=== PATIENT | female | born 1980 | race Caucasian/White ===

== ENCOUNTER 2017-02-11 05:17 | Emergency (ER) | payer MEDICAID ==
[2017-02-11] MEDS ORDERED: Acetaminophen 325 MG Tab PO ONE (05:51)
--- NOTE | 2017-02-11 06:00 | EDM.PDOC ---
ED HPI GENERAL MEDICAL PROBLEM - General Chief Complaint: Back Pain or Injury Stated Complaint: BACK PAIN POSSIBLE KIDNEY INFECTION OR UTI Time Seen by Provider: 02/11/17 05:44 Source of Information: Reports: Patient, RN Notes Reviewed - History of Present Illness INITIAL COMMENTS - FREE TEXT/NARRATIVE: 36-year-old female comes in with left low back pain. This did start about a week ago, has become much worse over the past 1-2 days. She now does have radiation down the left lower leg. Not aware of any bending or lifting injury. She has had voiding frequency but no burning or dysuria. No fever chills nausea or vomiting. 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 Below) Other OB/BYN History: PCOS Endocrine/Metabolic History: Reports: Diabetes, Type II Social & Family History - Tobacco Use Smoking Status *Q: Current Every Day Smoker Years of Tobacco use: 25 Packs/Tins Daily: 0.5 - Caffeine Use Caffeine Use: Reports: Coffee - Recreational Drug Use Recreational Drug Use: No ED ROS GENERAL - Review of Systems Review Of Systems: See Below Constitutional: Denies: Fever, Chills HEENT: Denies: Throat Pain Respiratory: Denies: Shortness of Breath Cardiovascular: Denies: Chest Pain GI/Abdominal: Denies: Abdominal Pain, Nausea, Vomiting : Reports: Frequency Musculoskeletal: Reports: Back Pain, Leg Pain (Left-sided) Skin: Reports: No Symptoms ED EXAM,LOWER BACK PAIN/INJURY - Physical Exam Exam: See Below General Appearance: Alert, Moderate Distress Throat/Mouth: Normal Inspection Head: Atraumatic Neck: Supple Respiratory/Chest: No Respiratory Distress Back Exam: CVA Tenderness (L), Paraspinal Tenderness (Left low back) Neurological: Alert, No Motor/Sensory Deficits, Oriented x 3 Course - Vital Signs Last Recorded V/S: Last Vital Signs Temp 96.4 F 02/11/17 05:26 Pulse 98 02/11/17 05:26 Resp 18 02/11/17 05:26 BP 159/106 H 02/11/17 05:26 Pulse Ox 100 02/11/17 05:26 - Orders/Labs/Meds Orders: Active Orders 24 hr Category Date Time Status Nitrofurantoin Kidder/Macrocryst [Macrobid] Med 02/11/17 06:59 Once 100 mg PO ONETIME ONE Labs: Laboratory Tests 02/11/17 Range/Units 05:55 Urine Color Yellow (Yellow) Urine Appearance Clear (Clear) Urine pH 6.0 (5.0-8.0) Ur Specific [place] > or = 1.030 (1.005-1.030) Urine Protein Negative (Negative) Urine Glucose (UA) Negative (Negative) Urine Ketones Negative (Negative) Urine Occult Blood 2+ H (Negative) Urine Nitrite Negative (Negative) Urine Bilirubin Negative (Negative) Urine Urobilinogen 0.2 (0.2-1.0) Ur Leukocyte Esterase 1+ H (Negative) Urine RBC 5-10 H (0-5) /hpf Urine WBC 5-10 H (0-5) /hpf Ur Epithelial Cells 0-5 (0-5) /hpf Urine Bacteria Few (FEW) /hpf Urine Mucus Few (FEW) /hpf Meds: Medications Discontinued Medications Generic Name Dose Route Start Last Admin Trade Name Freq PRN Reason Stop Dose Admin Acetaminophen 975 mg 02/11/17 05:51 02/11/17 05:54 Tylenol PO 02/11/17 05:52 975 mg NOW ONE Administration Hydrocodone Bitart/Acetaminophen 1 tab 02/11/17 06:58 [place] 325-5 Mg PO 02/11/17 06:59 ONETIME ONE Departure - Departure Time of Disposition: 07:00 Disposition: Home, Self-Care 01 Condition: Fair Clinical Impression: Sciatica Qualifiers: Laterality: left Qualified Code(s): M54.32 - Sciatica, left side UTI (urinary tract infection) Qualifiers: Urinary tract infection type: acute cystitis Hematuria presence: without hematuria Qualified Code(s): N30.00 - Acute cystitis without hematuria - Discharge Information Prescriptions: Cyclobenzaprine [Flexeril] 10 mg PO TID PRN #10 tablet PRN Reason: Spasms Nitrofurantoin Monohyd/M-Cryst [Macrobid 100 mg Capsule] 100 mg PO BID #10 capsule Referrals: PCP,None [Primary Care Provider] - Forms: ED Department Discharge Additional Instructions: Drink plenty of water to maintain hydration, Macrobid 100 mg twice daily for 5 days, alternate ice and heat to low back as needed for discomfort, continue Aleve 2 tabs twice daily, Flexeril as needed for muscle spasm, hydrocodone 325 one half tab with 500 mg Tylenol 3-4 times daily as needed for more severe pain. Follow-up clinic if not much better within 3-5 days, return to ED as needed - My Orders Last 24 Hours: My Active Orders 02/11/17 06:59 Nitrofurantoin Kidder/Macrocryst [Macrobid] 100 mg PO ONETIME ONE - Assessment/Plan Last 24 Hours: My Active Orders 02/11/17 06:59 Nitrofurantoin Kidder/Macrocryst [Macrobid] 100 mg PO ONETIME ONE
[2017-02-11] MEDS ORDERED: Acetaminophen/HYDROcodone 325-5 MG Tab PO ONE (06:58)
[2017-02-11] MEDS ORDERED: Nitrofurantoin Monohydrate/Macrocrystalline 100 MG Cap PO ONE (06:59)
== END 2017-02-11 07:15 | disposition home or self-care (01) ==
LOC: JD.ED 05:17
DX: M54.42 Lumbago with sciatica, left side (principal); N30.00 Acute cystitis without hematuria; E11.9 Type 2 diabetes mellitus without complications; F17.210 Nicotine dependence, cigarettes, uncomplicated; Z88.1 Allergy status to other antibiotic agents; Z79.899 Other long term (current) drug therapy
CPT/HCPCS: 81001; 99283; A9270

== ENCOUNTER 2018-06-02 02:06 | Emergency (ER) | payer SELFPAY ==
[2018-06-02] MEDS ORDERED: Albuterol/Ipratropium 3.0-0.5 MG/3 ML Neb Soln NEB ONE (02:24)
[2018-06-02] MEDS ORDERED: Budesonide 0.5 MG/2 ML Neb Susp NEB ONE (02:24)
--- NOTE | 2018-06-02 02:24 | EDM.PDOC ---
ED HPI GENERAL MEDICAL PROBLEM - General Chief Complaint: ENT Problem Stated Complaint: cold /feeling heart beat in her head Time Seen by Provider: 06/02/18 02:17 Source of Information: Reports: Patient History Limitations: Reports: No Limitations - History of Present Illness INITIAL COMMENTS - FREE TEXT/NARRATIVE: 37-year-old female presents to the ED with upper respiratory tract infection. Marked nasal congestion plugged feelings inner ears and she can feel every heartbeat when she lies down in her head. She was concerned that her blood pressure was going to be very high that she might be at risk of stroke. As forceful voice clearing. See been sick for the better part of 2 and half weeks. Throat is been very sore the last 3 days. Postnasal drip. Cough is for the most part is nonproductive. Feels that she is wheezy at times. Onset: Gradual Onset Date: 05/17/18 Duration: Week(s):, Getting Worse. No: Other ( Paroxysmal congested cough) Location: Reports: Chest (The last 3 days particularly with very sore throat and more nasal congestion.). Denies: Abdomen, Back, Pelvis, Lower Extremity, Left Quality: Reports: Other (Ingested nose. Throbbing pounding in her head i.e. every heartbeat) Severity: Moderate Improves with: Reports: None Worsens with: Reports: None Context: Denies: Activity, Exercise, Lifting, Sick Contact, Trauma, Other Associated Symptoms: Reports: Cough, Fever/Chills, Loss of Appetite, Malaise, Shortness of Breath. 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 - Related Data Allergies Allergy/AdvReac Type Severity Reaction Status Date / Time neomycin Allergy Blisters Verified 06/02/18 02:20 Home Meds: Home Meds Codeine/Promethazine [Phenergan with Codeine] 15 ml PO Q6HR #300 ml 06/02/18 [Rx ] Doxycycline [Vibramycin] 100 mg PO BID #20 cap 06/02/18 [Rx] Loratadine/Pseudoephedrine [Claritin-D 12 Hour] 1 tab PO Q12HR #6 tab.er [Rx] PARoxetine [Paxil] 20 mg PO DAILY 06/02/18 [History] Past Medical History Cardiovascular History: Reports: Hypertension 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 Denies : Fever HEENT: Reports: Hearing Loss, Rhinitis, Sinus Problem, Throat Pain. Denies: Vertigo Respiratory: Reports: Shortness of Breath, Wheezing, Cough. Denies: Pleuritic Chest Pain Cardiovascular: Reports: Dyspnea on Exertion. Denies: Chest Pain, Blood Pressure Problem, Claudication, Edema, Lightheadedness, Orthopnea Endocrine: Reports: No Symptoms GI/Abdominal: Reports: No Symptoms Musculoskeletal: Reports: Back Pain, Joint Pain Skin: Reports: No Symptoms (Knees hips at times) Neurological: Reports: No Symptoms Psychiatric: Reports: Depression Hematologic/Lymphatic: Reports: No Symptoms Immunologic: Reports: No Symptoms ED EXAM, ENT - Physical Exam Exam: See Below Exam Limited By: No Limitations General Appearance: Alert, WD/WN, Moderate Distress, Other (Sounds very nasally congested. BP is elevated at 140 7//08. Temperature is normal pulse ox is 9 98 % on room air. I appreciate a good deal of forceful voice clearing.) Eye Exam: Bilateral Eye: Normal Inspection Ears: TM Bulging, TM Dullness, TM Fluid (She does have a left serous otitis media.), Other ( Left side and TM is normal ) Nose: Other (Patient does have a mild nasal polyp and marked swelling of the superior ends medial turbinates on the left side as compared to the right. Likely contributing eustachian tube dysfunction and her DESEAN.) Mouth/Throat: Other (Diffuse oropharyngeal erythema and marked swelling of her uvula I believe from forceful voice clearing and coughing.) Head: Atraumatic, Normocephalic Neck: Normal Inspection, Supple, Non-Tender, Full Range of Motion. No: Lymphadenopathy (L), Lymphadenopathy (R) Respiratory/Chest: No Respiratory Distress, Lungs Clear, Normal Breath Sounds, Chest Non-Tender, Other Cardiovascular: Normal Peripheral Pulses (Medications minutes sounds from the upper respiratory tree the lower lungs are clear), Regular Rate, Rhythm, No Edema, No Gallop, No JVD, No Murmur GI/Abdominal: Normal Bowel Sounds, Soft, Non-Tender, No Organomegaly Course - Vital Signs Last Recorded V/S: Last Vital Signs Temp 36.9 C 06/02/18 02:17 Pulse 82 06/02/18 02:17 Resp 18 06/02/18 02:17 BP 147/108 H 06/02/18 02:17 Pulse Ox 94 L 06/02/18 02:33 - Orders/Labs/Meds Orders: Active Orders 24 hr Category Date Time Status RT Aerosol Therapy [RC] ASDIRECTED Care 06/02/18 02:24 Active Meds: Medications Discontinued Medications Generic Name Dose Route Start Last Admin Trade Name Freq PRN Reason Stop Dose Admin Albuterol/Ipratropium 3 ml 06/02/18 02:24 06/02/18 02:33 Duoneb 3.0-0.5 Mg/3 Ml NEB 06/02/18 02:25 3 ml ONETIME ONE Administration Budesonide 0.5 mg 06/02/18 02:24 06/02/18 02:33 Pulmicort NEB 06/02/18 02:25 0.5 mg ONETIME ONE Administration Doxycycline Hyclate 100 mg 06/02/18 02:40 Vibramycin PO 06/02/18 02:41 ONETIME ONE Oxymetazoline HCl 15 ml 06/02/18 02:27 Afrin Original 0.05% Nasal [place] FLACA 06/02/18 02:28 ONETIME ONE Promethazine HCl/Codeine 20 ml 06/02/18 02:57 Phenergan With Codeine PO 06/02/18 02:58 ONETIME ONE - Radiology Interpretation Free Text/Narrative:: 37-year-old female presents to the ED with upper respiratory tracts symptoms of infection with a left serous otitis media and clinically sinusitis with postnasal drip causing her to have forceful voice clearing and a sore throat. I' m going to have RT give her a DuoNeb with a Pulmicort neb treatments as he can alleviate some of her upper airway irritation. Lower lung curran are clear. We' ll try Afrin nasal spray one squirt each side to minutes apart to relieve some of her acute nasal congestion and perhaps her eustachian tube dysfunction. 2 be discharged on doxycycline 100 mg twice daily for the next 10 days to clear up sinus infection and postnasal drip. Claritin-D 12 hour release once daily every morning for the next 6 days. Afrin nasal spray 2 squirts to each side every night at bedtime - Re-Assessments/Exams Free Text/Narrative Re-Assessment/Exam: 06/02/18 03:01 patient doesn't feel she got much relief from the nebulizer treatment. He'll therefore have recurrence take Phenergan with codeine cough syrup 20 mils by mouth now to help relieve severe cough and it'll also help bring down her blood pressure which remains borderline elevated at 151/95. She will use Afrin nasal spray 2 squirts to each side is once daily at bedtime to help alleviate nasal congestion and this will not aggravate her blood pressure. Doxycycline 100 mg twice daily for the next 10 days for sinus infection. Nasal drip is continued to cause her paroxysmal cough and sore throat. Follow-up with primary care physician as needed. Departure - Departure Time of Disposition: 03:10 Disposition: Home, Self-Care 01 Condition: Fair Clinical Impression: Postnasal drip Sinusitis Qualifiers: Sinusitis location: unspecified location Chronicity: acute Recurrence: non- recurrent Qualified Code(s): J01.90 - Acute sinusitis, unspecified Pharyngitis Qualifiers: Pharyngitis/tonsillitis etiology: unspecified etiology Qualified Code(s): J02.9 - Acute pharyngitis, unspecified Left serous otitis media Qualifiers: Chronicity: acute Recurrence: non-recurrent Qualified Code(s): H65.02 - Acute serous otitis media, left ear - Discharge Information *PRESCRIPTION DRUG MONITORING PROGRAM REVIEWED*: Not Applicable *COPY OF PRESCRIPTION DRUG MONITORING REPORT IN PATIENT ETHEL: Not Applicable Prescriptions: Codeine/Promethazine [Phenergan with Codeine] 15 ml PO Q6HR #300 ml Loratadine/Pseudoephedrine [Claritin-D 12 Hour] 1 tab PO Q12HR #6 tab.er Doxycycline [Vibramycin] 100 mg PO BID #20 cap Instructions: Sinusitis, Adult, [id number], Postnasal Drip, Pharyngitis, Easy -to-Read Referrals: PCP,None [Primary Care Provider] - Forms: ED Department Discharge Additional Instructions: Evaluation in the emergency department today in regards to upper respiratory tract infection which has created sinus infection and fluid behind her left ear drum. This makes it possible to hear every heartbeat when you lie down or pounding in her head because of blood vessels traveling right behind her left eardrum. Blood pressure was found to be mildly elevated and he should keep an eye on it but it is only minimally elevated at this time it does not require medication on an emergent basis. I would suggest treatment with Afrin nasal spray 2 squirts to each side of your nose at bedtime for the next 3-5 days to help open up ear nose and allow the fluid to drain from the left ear cavity. Antibiotic is to be Doxycycline 100 mg twice daily for the next 10 days to clear up sinus infection and sore throat. Suggest Claritin-D 12 hour release once daily every morning for the next 6 days again to help provide decongestion of the sinuses and middle ear cavities. Use cough syrup Phenergan With Codeine 15 mils every 6-8 hours as necessary for relief of severe cough. - My Orders Last 24 Hours: My Active Orders 06/02/18 02:24 RT Aerosol Therapy [RC] ASDIRECTED - Assessment/Plan Last 24 Hours: My Active Orders 06/02/18 02:24 RT Aerosol Therapy [RC] ASDIRECTED
[2018-06-02] MEDS ORDERED: Oxymetazoline 0.05% Nasal Spray 15 ML Bottle NAS ONE (02:27)
[2018-06-02] MEDS ORDERED: Doxycycline 100 MG Cap PO ONE (02:40)
[2018-06-02] MEDS ORDERED: Codeine/Promethazine 10-6.25 MG/5 ML Syrup 5 ML UD Cup PO ONE (02:57)
== END 2018-06-02 03:05 | disposition home or self-care (01) ==
LOC: JD.ED 02:06
DX: J01.90 Acute sinusitis, unspecified (principal); J02.9 Acute pharyngitis, unspecified; H65.02 Acute serous otitis media, left ear; E11.9 Type 2 diabetes mellitus without complications; I10 Essential (primary) hypertension; F32.9 Major depressive disorder, single episode, unspecified; Z79.899 Other long term (current) drug therapy; Z88.8 Allergy status to other drugs, medicaments and biological substances
CPT/HCPCS: 94640; 99283; 99284-25; J7620-GY

== ENCOUNTER 2020-03-25 07:41 | Emergency (ER) | payer SELFPAY ==
[2020-03-25] MEDS ORDERED: Phenazopyridine 95 MG Tab PO ONE (08:12)
[2020-03-25] MEDS ORDERED: Ondansetron 4 MG Tab.DIS PO ONE (08:12)
--- NOTE | 2020-03-25 08:18 | EDM.PDOC ---
ED HPI GENERAL MEDICAL PROBLEM - General Chief Complaint: Genitourinary Problem Stated Complaint: PAINFUL URINATION AND BACK PAIN Time Seen by Provider: 03/25/20 07:57 Source of Information: Reports: Patient History Limitations: Reports: No Limitations - History of Present Illness INITIAL COMMENTS - FREE TEXT/NARRATIVE: The patient presents with urinary frequency and low back pain. This started yesterday and she has been urinating often all night. She has some nausea. She denies burning with urination. This does feel like her other UTIs. She has no fever, chills, cough, chest pain or shortness of breath. Onset: Gradual Duration: Day(s): () Location: Reports: Back Severity: Moderate Improves with: Reports: None Worsens with: Reports: None Associated Symptoms: Reports: Nausea/Vomiting. 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 Psychiatric History: Reports: Depression Endocrine/Metabolic History: Reports: Diabetes, Type II Social & Family History - Family History Family Medical History: No Pertinent Family History - Tobacco Use Tobacco Use Status *Q: Current Every Day Tobacco User Years of Tobacco use: 20 Packs/Tins Daily: 0.5 Second Hand Smoke Exposure: Yes - Caffeine Use Caffeine Use: Reports: Coffee - Recreational Drug Use Recreational Drug Use: No - Living Situation & Occupation Living situation: Reports: Occupation: Unemployed ED ROS GENERAL - Review of Systems Review Of Systems: See Below Constitutional: Reports: No Symptoms HEENT: Reports: No Symptoms Respiratory: Reports: No Symptoms Cardiovascular: Reports: No Symptoms Endocrine: Reports: No Symptoms GI/Abdominal: Reports: Abdominal Pain, Nausea. Denies: Vomiting : Reports: Frequency. Denies: Dysuria Musculoskeletal: Reports: Back Pain ED EXAM, GI/ABD - Physical Exam Exam: See Below Exam Limited By: No Limitations General Appearance: Alert, No Apparent Distress Ears: Normal External Exam Nose: Normal Inspection Head: Atraumatic, Normocephalic Neck: Normal Inspection Respiratory/Chest: No Respiratory Distress, Lungs Clear, Normal Breath Sounds Cardiovascular: Regular Rate, Rhythm, No Edema, No Murmur GI/Abdominal Exam: Soft, Non-Tender, No Organomegaly, No Mass Back Exam: Other (Mild tenderness to the left lower back) Course - Vital Signs Last Recorded V/S: Last Vital Signs Temp 96.9 F 03/25/20 08:01 Pulse 108 H 03/25/20 08:01 Resp 18 03/25/20 08:01 BP 156/119 H 03/25/20 08:01 Pulse Ox 99 03/25/20 08:01 - Orders/Labs/Meds Labs: Laboratory Tests 03/25/20 Range/Units 07:52 Urine Color [place] H (Yellow) Urine Appearance [place] cloudy H (Clear) Urine pH 5.0 (5.0-8.0) Ur Specific [place] <=1.005 (1.005-1.030) Urine Protein 2+ H (Negative) Urine Glucose (UA) 1+ H (Negative) Urine Ketones 1+ H (Negative) Urine Occult Blood 2+ H (Negative) Urine Nitrite Positive H (Negative) Urine Bilirubin 2+ H (Negative) Urine Urobilinogen >=8.0 H (0.2-1.0) Ur Leukocyte Esterase 3+ H (Negative) Urine RBC 20-30 H (0-5) /hpf Urine WBC 30-40 H (0-5) /hpf Ur Squamous Epith Cells 0-5 (0-5) /hpf Urine Bacteria Many H (FEW) /hpf Urine Mucus Few (FEW) /hpf Meds: Medications Discontinued Medications Generic Name Dose Route Start Last Admin Trade Name [place] PRN Reason Stop Dose Admin Ondansetron HCl 4 mg 03/25/20 08:12 03/25/20 08:19 Zofran Odt PO 03/25/20 08:13 4 mg ONETIME ONE Administration Phenazopyridine HCl 95 mg 03/25/20 08:12 03/25/20 08:19 Urinary Pain Relief PO 03/25/20 08:13 95 mg ONETIME ONE Administration - Re-Assessments/Exams Free Text/Narrative Re-Assessment/Exam: 03/25/20 08:18 I ordered a UA, pyridium, and zofran 4mg ODT. 03/25/20 08:40 Her UA shows a UTI. I will give her a dose of keflex and a prescription for more. Departure - Departure Time of Disposition: 08:45 Disposition: Home, Self-Care 01 Condition: Good Clinical Impression: UTI, Urinary tract infectious disease - Discharge Information *PRESCRIPTION DRUG MONITORING PROGRAM REVIEWED*: Not Applicable *COPY OF PRESCRIPTION DRUG MONITORING REPORT IN PATIENT ETHEL: Not Applicable Referrals: PCP,None [Primary Care Provider] - Forms: ED Department Discharge Additional Instructions: Drink plenty of fluids. Take the keflex 2 times per day for 5 days. Take tylenol or motrin for any pain. Please return if you are worse. Sepsis Event Note (ED) - Evaluation Sepsis Screening Result: No Definite Risk - Focused Exam Vital Signs: Vital Signs Temp Pulse Resp BP Pulse Ox 03/25/20 08:01 96.9 F 108 H 18 156/119 H 99 03/25/20 07:53 96.9 F 108 H 18 156/119 H 99
[2020-03-25] MEDS ORDERED: Cephalexin 500 MG Cap PO ONE (08:40)
== END 2020-03-25 09:06 | disposition home or self-care (01) ==
LOC: JD.ED 07:41
DX: N39.0 Urinary tract infection, site not specified (principal); I10 Essential (primary) hypertension; Z88.1 Allergy status to other antibiotic agents; Z72.0 Tobacco use
CPT/HCPCS: 81001; 99283; A9270

== ENCOUNTER 2021-09-16 13:32 | Emergency (ER) | payer SELFPAY ==
[2021-09-16] MEDS ORDERED: diphenhydrAMINE 50 MG/ML SDV IVPUSH ONE (13:55)
[2021-09-16] MEDS ORDERED: Metoclopramide 10 MG/2 ML SDV IVPUSH ONE (13:55)
[2021-09-16] MEDS ORDERED: Ketorolac 30 MG/ML SDV IVPUSH ONE (13:55)
[2021-09-16] MEDS ORDERED: Sodium Chloride 0.9% 1,000 ML IV ONE (13:55)
[2021-09-16] MEDS ORDERED: Sodium Chloride 0.9% 10 ML Syringe FLUSH PRN (13:55)
[2021-09-16 15:10] LABS: ESTIMATED GFR 114 mL/min (>60)
== END 2021-09-16 15:10 | disposition home or self-care (01) ==
LOC: JD.ED 13:32
DX: R51.9 Headache, unspecified (principal); U09.9 Post COVID-19 condition, unspecified; I10 Essential (primary) hypertension; E11.9 Type 2 diabetes mellitus without complications; F17.210 Nicotine dependence, cigarettes, uncomplicated; E66.9 Obesity, unspecified; Z68.41 Body mass index [BMI] 40.0-44.9, adult; Z79.82 Long term (current) use of aspirin; Z79.84 Long term (current) use of oral hypoglycemic drugs
CPT/HCPCS: 36415; 80053; 83735; 85025; 86140; 96361; 96374; 96375; 99284; J1200; J1885; J2765; J7030

== ENCOUNTER 2022-09-02 19:41 | Emergency (ER) | payer SELFPAY ==
[2022-09-02] MEDS ORDERED: Sodium Chloride 0.9% 10 ML Syringe FLUSH PRN (20:03)
[2022-09-02] MEDS ORDERED: Ketorolac 30 MG/ML SDV IVPUSH ONE (20:07)
[2022-09-02 20:39] LABS: BASOPHILS ABSOLUTE AUTO 0.04 K/mm3 (0.01-0.08); BASOPHILS PERCENT AUTO 0.3 % (0.1-1.2); EOSINOPHILS ABSOLUTE AUTO 0.27 K/mm3 (0.04-0.36); EOSINOPHILS PERCENT AUTO 2.3 (0.7-5.8); HEMATOCRIT 41.9 % (34.1-44.9); HEMOGLOBIN 14.2 gm/dl (11.2-15.7); IMMATURE GRAN ABSOLUTE AUTO 0.04 K/mm3 (0.00-0.10); IMMATURE GRAN PERCENT AUTO 0.3 % (<=1.0); LYMPHOCYTES PERCENT AUTO 30.3 % (19.3-51.7); MEAN CORPUSCULAR HGB CONC 33.9 g/dl (32.2-35.5); MEAN CORPUSCULAR VOLUME 85.7 fl (79.4-94.8); MEAN PLATELET VOLUME 11.1 fl (9.4-12.3); MONOCYTES ABSOLUTE AUTO 0.69 K/mm3 (0.24-0.36); NEUTROPHILS ABSOLUTE AUTO 7.01 K/mm3 (1.56-6.13); NEUTROPHILS PERCENT AUTO 60.8 % (34.0-71.1); PLATELET COUNT,PLT 202 K/mm3 (182-369); RED BLOOD CELL COUNT 4.89 M/mm3 (3.98-5.22); WHITE BLOOD CELL COUNT,WBC 11.55 K/mm3 (3.98-10.04)
[2022-09-02 21:05] LABS: A/G RATIO 1.1 (1-2); ALANINE AMINOTRANSFERASE,ALT 36 U/L (14-59); ALBUMIN 3.9 g/dl (3.4-5.0); ALKALINE PHOSPHATASE 66 U/L (46-116); ANION GAP 11.8 (5-15); ASPARTATE AMNIOTRANSFERASE,AST 28 U/L (15-37); BILIRUBIN TOTAL 0.3 mg/dL (0.2-1.0); BLOOD UREA NITROGEN,BUN 8 mg/dL (7-18); C-REACTIVE PROTEIN <0.2 mg/dL (<1.0); CALCIUM 9.8 mg/dL (8.5-10.1); CARBON DIOXIDE,CO2 26 mEq/L (21-32); CHLORIDE,CL 103 mEq/L (98-107); CREATININE 0.8 mg/dL (0.55-1.02); EST CRCL DRUG DOSING (CG) 87.27 mL/min; ESTIMATED GFR 93 mL/min (>60); GLUCOSE RANDOM 147 mg/dL (70-99); POTASSIUM,K 3.8 mEq/L (3.5-5.1); PROTEIN TOTAL,TP 7.5 g/dl (6.4-8.2); SODIUM,NA 137 mEq/L (136-145); TROPONIN I HIGH SENSITIVITY 4 pg/mL (<=51)
[2022-09-02] MEDS ORDERED: predniSONE 10 MG Tab PO ONE (21:46)
== END 2022-09-02 22:02 | disposition home or self-care (01) ==
LOC: JD.ED 19:41
DX: R07.9 Chest pain, unspecified (principal); I10 Essential (primary) hypertension; E11.9 Type 2 diabetes mellitus without complications; E66.9 Obesity, unspecified; Z68.41 Body mass index [BMI] 40.0-44.9, adult; Z86.16 Personal history of COVID-19; Z79.82 Long term (current) use of aspirin; Z88.1 Allergy status to other antibiotic agents; Z79.899 Other long term (current) drug therapy; Z79.84 Long term (current) use of oral hypoglycemic drugs; Z87.891 Personal history of nicotine dependence
CPT/HCPCS: 36415; 71046; 80053; 84484; 85025; 85379; 86140; 93005; 96374; 99285; J1885; J3490; J7512; 93010; 99284

== ENCOUNTER 2023-02-11 20:13 | Emergency (ER) | payer SELFPAY ==
[2023-02-11 22:00] LABS: CORONAVIRUS COVID-19 NAA NEGATIVE (NEGATIVE); INFLUENZA A NAA NEGATIVE (NEGATIVE)
== END 2023-02-11 22:57 | disposition left against medical advice (07) ==
LOC: JD.ED 20:13
DX: Z53.21 Procedure and treatment not carried out due to patient leaving prior to being seen by health care provider (principal)
CPT/HCPCS: 0240U

== ENCOUNTER 2023-06-22 13:49 | Emergency (ER) | payer SELFPAY ==
[2023-06-22] MEDS: Sodium Chloride 0.9% 10 ML Syringe FLUSH PRN (14:13)
[2023-06-22] MEDS: Sodium Chloride 0.9% 100 ML IV SCH (14:13)
[2023-06-22] MEDS: Iopamidol 755 Mg/ML 100 ML Bottle IVPUSH ONE (14:13)
[2023-06-22 14:56] LABS: BASOPHILS PERCENT AUTO 0.5 % (0.0-1.0); EOSINOPHILS ABSOLUTE AUTO 0.2 K/mm3 (0.0-0.4); EOSINOPHILS PERCENT AUTO 2.6 % (0.0-6.0); HEMATOCRIT 41.1 % (37.0-47.0); HEMOGLOBIN 13.8 gm/dl (12.0-16.0); IMMATURE GRAN ABSOLUTE AUTO 0.03 K/mm3 (0.00-0.05); IMMATURE GRAN PERCENT AUTO 0.4 % (0.0-0.4); LYMPHOCYTES ABSOLUTE AUTO 2.4 K/mm3 (1.0-4.8); LYMPHOCYTES PERCENT AUTO 31.3 % (24.0-44.0); MEAN CORPUSCULAR HGB CONC 33.6 g/dl (32.0-36.0); MEAN CORPUSCULAR VOLUME 86.3 fl (83.0-99.0); MEAN PLATELET VOLUME 10.5 fl (9.4-12.3); MONOCYTES ABSOLUTE AUTO 0.4 K/mm3 (0.0-0.8); MONOCYTES PERCENT AUTO 5.3 % (0.0-8.0); NEUTROPHILS ABSOLUTE AUTO 4.5 K/mm3 (1.8-7.7); NEUTROPHILS PERCENT AUTO 59.9 % (41.0-71.0); PLATELET COUNT,PLT 184 K/mm3 (150-400); RED BLOOD CELL COUNT 4.76 M/mm3 (4.10-5.30); WHITE BLOOD CELL COUNT,WBC 7.58 K/mm3 (3.9-11.3)
[2023-06-22 15:08] LABS: INR 0.99; PROTHROMBIN TIME 10.6 SECONDS (9.7-12.0)
[2023-06-22 15:09] LABS: D-DIMER QUANTITATIVE 0.28 mg/L (0.19-0.50)
[2023-06-22 15:10] LABS: PTT,PARTIAL THROMBOPLSTIN TIME 20.5 SECONDS (21.7-31.4)
[2023-06-22 15:11] LABS: A/G RATIO 1.2 (1-2); ANION GAP 16.1 (5-15); BILIRUBIN TOTAL 0.7 mg/dL (0.2-1.0); CALCIUM 9.1 mg/dL (8.5-10.1); CREATININE 0.6 mg/dL (0.55-1.02); EST CRCL DRUG DOSING (CG) 116.35 mL/min; POTASSIUM,K 4.1 mEq/L (3.5-5.1); PROTEIN TOTAL,TP 7.3 g/dl (6.4-8.2)
== END 2023-06-22 17:13 | disposition home or self-care (01) ==
LOC: JD.ED 13:49
DX: G51.0 Bell's palsy (principal); I10 Essential (primary) hypertension; E11.9 Type 2 diabetes mellitus without complications; E66.9 Obesity, unspecified; Z86.16 Personal history of COVID-19; Z79.84 Long term (current) use of oral hypoglycemic drugs; Z79.899 Other long term (current) drug therapy; Z88.1 Allergy status to other antibiotic agents
CPT/HCPCS: 36415; 70450; 70496; 70498; 80053; 82947; 84484; 85025; 85379; 85610; 85730; 93005; 99285; J3490; Q9967; 93010; 99284

== ENCOUNTER 2023-09-29 01:24 | Emergency (ER) | payer SELFPAY ==
[2023-09-29 02:05] LABS: APPEARANCE,URINE CLEAR (Clear); BILIRUBIN,URINE 2+ (Negative); COLOR,URINE ORANGE (Yellow); GLUCOSE,URINE 1+ (Negative); KETONES,URINE 1+ (Negative); LEUKOCYTE ESTERASE,URINE 3+ (Negative); NITRITE,URINE POSITIVE (Negative); OCCULT BLOOD,URINE 2+ (Negative); PROTEIN,URINE 3+ (Negative)
[2023-09-29] MEDS: Ketorolac 15 MG/ML SDV IVPUSH ONE ×2 (02:06→04:59)
[2023-09-29] MEDS: Sodium Chloride 0.9% 1,000 ML IV ONE (02:06)
[2023-09-29 02:07] LABS: BASOPHILS ABSOLUTE AUTO 0.1 K/mm3 (0.0-0.2); BASOPHILS PERCENT AUTO 0.4 % (0.0-1.0); EOSINOPHILS ABSOLUTE AUTO 0.4 K/mm3 (0.0-0.4); EOSINOPHILS PERCENT AUTO 2.8 % (0.0-6.0); HEMATOCRIT 42.1 % (37.0-47.0); HEMOGLOBIN 14.1 gm/dl (12.0-16.0); IMMATURE GRAN ABSOLUTE AUTO 0.06 K/mm3 (0.00-0.05); IMMATURE GRAN PERCENT AUTO 0.5 % (0.0-0.4); LYMPHOCYTES ABSOLUTE AUTO 3.7 K/mm3 (1.0-4.8); LYMPHOCYTES PERCENT AUTO 29.7 % (24.0-44.0); MEAN CORPUSCULAR HEMOGLOBIN 28.3 pg (28.0-32.0); MEAN CORPUSCULAR HGB CONC 33.5 g/dl (32.0-36.0); MEAN CORPUSCULAR VOLUME 84.5 fl (83.0-99.0); MEAN PLATELET VOLUME 10.3 fl (9.4-12.3); MONOCYTES ABSOLUTE AUTO 0.9 K/mm3 (0.0-0.8); MONOCYTES PERCENT AUTO 6.8 % (0.0-8.0); NEUTROPHILS ABSOLUTE AUTO 7.5 K/mm3 (1.8-7.7); NEUTROPHILS PERCENT AUTO 59.8 % (41.0-71.0); PLATELET COUNT,PLT 266 K/mm3 (150-400); RED BLOOD CELL COUNT 4.98 M/mm3 (4.10-5.30); WHITE BLOOD CELL COUNT,WBC 12.58 K/mm3 (3.9-11.3)
[2023-09-29] MEDS: Sodium Chloride 0.9% 10 ML Syringe FLUSH PRN (02:07)
[2023-09-29 02:09] LABS: EPITHELIAL CELLS,URINE 0-5 /hpf (0-5); WBC,URINE NOT SEEN /hpf (0-5)
[2023-09-29 02:10] LABS: BACTERIA,URINE FEW /hpf (FEW); MUCUS,URINE RARE /hpf (FEW)
[2023-09-29] MEDS: Iopamidol 612 MG/ML 100 ML Bottle IVPUSH ONE (02:24)
[2023-09-29 02:30] LABS: A/G RATIO 1.1 (1-2); ANION GAP 14.7 (5-15); BILIRUBIN TOTAL 0.5 mg/dL (0.2-1.0); BUN/CREATININE RATIO 17.5 (14-18); CALCIUM 9.7 mg/dL (8.5-10.1); CREATININE 0.8 mg/dL (0.55-1.02); EST CRCL DRUG DOSING (CG) 89.58 mL/min; POTASSIUM,K 3.7 mEq/L (3.5-5.1); PROTEIN TOTAL,TP 7.6 g/dl (6.4-8.2)
[2023-09-29] MEDS: Lactated Ringers 1,000 ML IV ONE (04:09)
[2023-09-29] MEDS: cefTRIAXone 2 GM in Sodium Chloride 0.9% 100 ML IV ONE (04:10)
[2023-09-29] MEDS: HYDROmorphone 0.5 MG/0.5 ML Syringe IVPUSH ONE ×2 (04:10→06:22)
[2023-09-29] MEDS: Ondansetron 4 MG/2 ML SDV IVPUSH ONE (07:01)
[2023-09-29 07:29] LABS: APPEARANCE,URINE SLT CLOUDY (Clear); BILIRUBIN,URINE NEGATIVE (Negative); COLOR,URINE AMBER (Yellow); GLUCOSE,URINE TRACE (Negative); KETONES,URINE 2+ (Negative); LEUKOCYTE ESTERASE,URINE NEGATIVE (Negative); NITRITE,URINE POSITIVE (Negative); OCCULT BLOOD,URINE 2+ (Negative); PROTEIN,URINE 2+ (Negative)
[2023-09-29 07:48] LABS: BACTERIA,URINE MODERATE /hpf (FEW); MUCUS,URINE FEW /hpf (FEW); RBC,URINE 30-40 /hpf (0-5); WBC,URINE 0-5 /hpf (0-5)
== END 2023-09-29 11:53 | disposition home or self-care (01) ==
LOC: JD.ED 01:24
DX: N13.2 Hydronephrosis with renal and ureteral calculous obstruction (principal); N30.00 Acute cystitis without hematuria; I10 Essential (primary) hypertension; E11.9 Type 2 diabetes mellitus without complications; E66.9 Obesity, unspecified; Z86.16 Personal history of COVID-19; Z68.41 Body mass index [BMI] 40.0-44.9, adult; Z79.899 Other long term (current) drug therapy; Z79.2 Long term (current) use of antibiotics; Z79.84 Long term (current) use of oral hypoglycemic drugs; Z88.1 Allergy status to other antibiotic agents
CPT/HCPCS: 36415; 74177; 80053; 81001; 83605; 83690; 84703; 85025; 87040; 87086; 96361; 96365; 96375; 96376; 99284; J0696; J1170; J1885; J2405; J3490; J7030; J7120; Q9967